=== PATIENT | male | born 1990 | race African-American/Black ===

== ENCOUNTER 2021-04-04 09:30 | Emergency (ER) | payer OTHER ==
[~2021-04-04] VITALS: Ht 185.4 cm; Wt 98.1 kg
[2021-04-04 09:33] VITALS: BP 134/67
== END 2021-04-04 12:34 | disposition home or self-care (01) ==
LOC: M ED 09:30
DX: J06.9 Acute upper respiratory infection, unspecified (principal); Z20.822 Contact with and (suspected) exposure to COVID-19
CPT/HCPCS: 99282; U0003

== ENCOUNTER 2021-04-16 09:18 | Emergency (ER) | payer OTHER ==
[~2021-04-16] VITALS: Ht 185.4 cm; Wt 91.8 kg
[2021-04-16 09:20] VITALS: BP 120/59
--- OUTSIDE RECORDS SUMMARY | 2021-04-16 09:28 | CCD | Continuity of Care Document ---
Author Author Tyler Bell Organization Unknown Address [address] [place] [address] Phone [phone] Care Team Providers Care Glue Specialty Supervisor Name Role Phone Sammi Randhawa M.D. AUTM [phone] [facility] AUTM Problems Description No Information Available Social History Type Date Description Comments Sex Unknown Allergies, Adverse Reactions, Alerts Description No Information Available Medications Description No Information Available Immunizations Description No Information Available Vital Signs Description No Information Available Results Description No Information Available Procedures Date Code Description Status 01/13/2021 38919 Polysomnography Sleep Staging 4+ Parameters W/Cpap Completed Medical Devices Description No Information Available Encounters Description No Information Available Assessments Date Code Description Provider 01/13/2021 G47.33 Obstructive sleep apnea (adult) (pediatric) Jay Rodriguez M.D. Plan of Treatment No Information Available Functional Status Description No Information Available Mental Status Description No Information Available Referrals Refer to Reason for Referral Status Appt Date Created
--- OUTSIDE RECORDS SUMMARY | 2021-04-16 09:28 | CCD | Continuity of Care Document ---
Author Author Tyler Bell Organization Unknown Address [address] [place] [address] Phone [phone] Care Team Providers Care Volleyball Assistant Coach Name Role Phone Sammi Randhawa M.D. AUTM [phone] [facility] AUTM [phone] Problems Description No Information Available Social History Type Date Description Comments Sex Unknown Allergies, Adverse Reactions, Alerts Description No Information Available Medications Description No Information Available Immunizations Description No Information Available Vital Signs Description No Information Available Results Description No Information Available Procedures Date Code Description Status 01/13/2021 25400 Polysomnography Sleep Staging 4+ Parameters W/Cpap Completed [...]
--- OUTSIDE RECORDS SUMMARY | 2021-04-16 09:28 | CCD | Continuity of Care Document ---
Author Author Tyler Bell Organization Unknown Address [address] [place] [address] Phone [phone] Care Team Providers Care Broom Builder Name Role Phone Sammi Randhawa M.D. AUTM [phone] Problems Description No Information Available Social History Type Date Description Comments Sex Unknown Allergies and adverse reactions Description No Information Available Medications Description No Information Available Immunizations Description No Information Available Vital Signs Description No Information Available Results Description No Information Available Procedures Date Code Description Status 03/20/2021 67541 Polysomnography Sleep Staging 4+ Parameters Completed 01/13/2021 74210 Polysomnography Sleep Staging 4+ Parameters W/Cpap Completed Medical Devices Description No Information Available Encounters Description No Information Available Assessments Date Code Description Provider 03/20/2021 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 03/20/2021 R06.83 Snoring Jay Rodriguez M.D. 01/13/2021 G47.33 Obstructive sleep apnea (adult) (pediatric) Jay Rodriguez M.D. Plan of Treatment No Information Available Functional Status Description No Information Available Mental Status Description No Information Available Referrals Refer to Reason for Referral Status Appt Date Created
--- OUTSIDE RECORDS SUMMARY | 2021-04-16 09:28 | CCD | Continuity of Care Document ---
Author Author Tyler Bell Organization Unknown Address [address] [place] [address] Phone [phone] Care Team Providers Care Senior Training Specialist Name Role Phone Sammi Randhawa M.D. [facility] [phone] Problems Description No Information Available Social History Type Date Description Comments Sex Unknown Allergies, Adverse Reactions, Alerts Description No Information Available Medications Description No Information Available Immunizations Description No Information Available Vital Signs Description No Information Available Results Description No Information Available Procedures Date Code Description Status 01/13/2021 17621 Polysomnography Sleep Staging 4+ Parameters W/Cpap Completed [...]
--- OUTSIDE RECORDS SUMMARY | 2021-04-16 09:28 | CCD | Continuity of Care Document ---
Author Author Tyler Bell Organization Unknown Address [address] [place] [address] Phone [phone] Care Team Providers Care Field Human Resources Manager Name Role Phone Sammi Randhawa M.D. [facility] [phone] Problems Description No Information Available Social History Type Date Description Comments Sex Unknown Allergies, Adverse Reactions, Alerts Description No Information Available Medications Description No Information Available Immunizations Description No Information Available Vital Signs Description No Information Available Results Description No Information Available Procedures Description No Information Available Medical Devices Description No Information Available Encounters Description No Information Available Assessments Description No Information Available Plan of Treatment No Information Available Functional Status Description No Information Available Mental Status Description No Information Available Referrals Description No Information Available
--- OUTSIDE RECORDS SUMMARY | 2021-04-16 09:28 | CCD ---
Author Author [facility] Address Unknown Phone Unavailable Support Name Relationship Address Phone [facility] Next Of Kin [address] [address] Unavailable Re-disclosure Warning The records that you are about to access may contain information from federally-assisted alcohol or drug abuse programs. If such information is present, then the following federally mandated warning applies: This information has been disclosed to you from records protected by federal confidentiality rules (42 CFR part 2). The federal rules prohibit you from making any further disclosure of this information unless further disclosure is expressly permitted by the written consent of the person to whom it pertains or as otherwise permitted by 42 CFR part 2. A general authorization for the release of medical or other information is NOT sufficient for this purpose. The Federal rules restrict any use of the information to criminally investigate or prosecute any alcohol or drug abuse patient.The records that you are about to access may contain highly sensitive health information, the redisclosure of which is protected by Article 27-F of the [facility] Public Health law. If you continue you may have access to information: Regarding HIV / AIDS; Provided by facilities licensed or operated by the [facility] Office of Mental Health; or Provided by the [facility] Office for People With Developmental Disabilities. If such information is present, then the following [facility] mandated warning applies: This information has been disclosed to you from confidential records which are protected by state law. State law prohibits you from making any further disclosure of this information without the specific written consent of the person to whom it pertains, or as otherwise permitted by law. Any unauthorized further disclosure in violation of state law may result in a fine or fpc sentence or both. A general authorization for the release of medical or other information is NOT sufficient authorization for further disc losure. Medications No Information Insurance Providers Payer name Policy type / Coverage type Policy ID Covered republican ID Covered republican's relationship to romeo Policy Romeo Plan Information [facility] ACTIVE DUTY [id number] Problems, Conditions, and Diagnoses No Information Surgeries/Procedures Procedure Description Date Indications Data Source(s) Polysomnography Sleep Staging 4+ Parameters 03/20/2021 12:00:00 AM EDT [facility] ([facility], ) Polysomnography Sleep Staging 4+ Parameters W/Cpap 01/13/2021 12:00:00 AM EDT [facility] ([facility], ) Results ID Date Data Source [id number] 04/04/2021 10:35:00 AM EDT [facility] Name Value Range Interpretation Code Description Data Kacie rce(s) Supporting Document(s) SARS COVID ANTIGEN NEGATIVE [facility] This lab was ordered by JANELL johnson nd reported by [facility]. Procedure Social History No Information
[2021-04-16] MEDS ORDERED: VIST25CA PO (09:32)
--- OUTSIDE RECORDS SUMMARY | 2021-04-16 11:03 | CCD ---
Author Author [facility] Address Unknown Phone Unavailable Support Name Relationship Address Phone [facility] Next Of Kin [address] [place] [address] Unavailable Re-disclosure Warning The records that you [...] is protected by Article 27-F of the [facility] Public Health law. If you continue you may have access to information: Regarding HIV / AIDS; Provided by facilities licensed or operated by the [facility] Office of Mental Health; or Provided by the [facility] Office for People With Developmental Disabilities. If such information is present, then the following [facility] mandated warning applies: This information has [...] law may result in a fine or half-way sentence or both. A general authorization for the release of medical or other information is NOT sufficient authorization for further disc losure. Medications No Information Insurance Providers Payer name Policy type / Coverage type Policy ID Covered democrat ID Covered democrat's relationship to romeo Policy Romeo Plan Information [facility] ACTIVE DUTY [id number] Problems, Conditions, and Diagnoses No Information Surgeries/Procedures Procedure Description Date Indications Data Source(s) Polysomnography Sleep Staging 4+ Parameters 03/20/2021 12:00:00 AM EDT [facility] ([facility], ) Polysomnography Sleep Staging 4+ Parameters W/Cpap 01/13/2021 12:00:00 AM EDT [facility] ([facility], ) Results ID Date Data Source [id number] 04/04/2021 10:35:00 AM EDT [facility] Name Value Range Interpretation Code Description Data Kacie rce(s) Supporting Document(s) SARS COVID ANTIGEN NEGATIVE [facility] This lab was ordered by JANELL johnson nd reported by [facility]. Procedure Social History No Information
== END 2021-04-16 10:59 | disposition left against medical advice (07) ==
LOC: M ED 09:18
DX: Z53.21 Procedure and treatment not carried out due to patient leaving prior to being seen by health care provider (principal)

== ENCOUNTER 2021-04-19 02:47 | Emergency (ER) | payer OTHER ==
[~2021-04-19] VITALS: Ht 185.4 cm; Wt 96.8 kg
[~2021-04-19 02:47] MED LIST: VIST25CA PO
--- OUTSIDE RECORDS SUMMARY | 2021-04-19 02:52 | CCD ---
Author Author [facility] Address Unknown Phone Unavailable Support Name Relationship Address Phone [facility] Next Of Kin [address] [place] [address] Unavailable Re-disclosure Warning The records that you [...] is protected by Article 27-F of the [facility] Public Health law. If you continue you may have access to information: Regarding HIV / AIDS; Provided by facilities licensed or operated by the [facility] Office of Mental Health; or Provided by the [facility] Office for People With Developmental Disabilities. If such information is present, then the following [facility] mandated warning applies: This information has [...] law may result in a fine or alf sentence or both. A general authorization for the release of medical or other information is NOT sufficient authorization for further disc losure. Medications No Information Insurance Providers Payer name Policy type / Coverage type Policy ID Covered alliance party ID Covered alliance party's relationship to romeo Policy Romeo Plan Information [facility] ACTIVE DUTY [id number] Problems, Conditions, and Diagnoses No Information Surgeries/Procedures Procedure Description Date Indications Data Source(s) Polysomnography Sleep Staging 4+ Parameters 03/20/2021 12:00:00 AM EDT [facility] ([facility], ) Polysomnography Sleep Staging 4+ Parameters W/Cpap 01/13/2021 12:00:00 AM EDT [facility] ([facility], ) Results ID Date Data Source [id number] 04/04/2021 10:35:00 AM EDT [facility] Name Value Range Interpretation Code Description Data Kacie rce(s) Supporting Document(s) SARS COVID ANTIGEN NEGATIVE [facility] This lab was ordered by JANELL johnson nd reported by [facility]. Procedure Social History No Information
[2021-04-19] MEDS ORDERED: LEXA1TAB PO (03:09)
--- OUTSIDE RECORDS SUMMARY | 2021-04-19 07:43 | CCD ---
Author Author [facility] Address Unknown Phone Unavailable Support Name Relationship Address Phone [facility] Next Of Kin [address] [place] [address] Unavailable Re-disclosure Warning The records that you [...] is protected by Article 27-F of the [facility] Public Health law. If you continue you may have access to information: Regarding HIV / AIDS; Provided by facilities licensed or operated by the [facility] Office of Mental Health; or Provided by the [facility] Office for People With Developmental Disabilities. If such information is present, then the following [facility] mandated warning applies: This information has been [...] law may result in a fine or longterm sentence or both. A general authorization for the release of medical or other information is NOT sufficient authorization for further disc losure. Medications No Information Insurance Providers Payer name Policy type / Coverage type Policy ID Covered democrat ID Covered democrat's relationship to romeo Policy Romeo Plan Information [facility] ACTIVE DUTY [id number] Problems, Conditions, and Diagnoses No Information Surgeries/Procedures Procedure Description Date Indications Data Source(s) Polysomnography Sleep Staging 4+ Parameters 03/20/2021 12:00:00 AM EDT [facility] ([facility], ) Polysomnography Sleep Staging 4+ Parameters W/Cpap 01/13/2021 12:00:00 AM EDT [facility] ([facility], ) Results ID Date Data Source [id number] 04/04/2021 10:35:00 AM EDT [facility] Name Value Range Interpretation Code Description Data Kacie rce(s) Supporting Document(s) SARS COVID ANTIGEN NEGATIVE [facility] This lab was ordered by JANELL johnson nd reported by [facility]. Procedure Social History No Information
[2021-04-19] MEDS ORDERED: diphenhydrAMINE 50MG/ML VIAL (J1200) IV STA (08:23)
[2021-04-19] MEDS ORDERED: METOCLOPRAMIDE INJ 10MG/2ML VIAL (J2765 PER 1) IV ONE (08:25)
[2021-04-19] MEDS ORDERED: KETOROLAC 30 MG/ML 1ML VIAL IV ONE (08:25)
[2021-04-19] MEDS ORDERED: NS 1,000 ML IV ONE (08:25)
--- NOTE | 2021-04-19 08:57 | REPVR ---
PROCEDURE INFORMATION: Exam: CT Head Without Contrast Exam date and time: 04/19/2021 8:28 AM Age: 30 years old Clinical indication: Pain; Headache; Additional info: MEJIA x 3wks, no prior HX of MEJIA TECHNIQUE: Imaging protocol: Computed tomography of the head without contrast. Radiation optimization: All CT scans at this facility use at least one of these dose optimization techniques: automated exposure control; mA and/or kV adjustment per patient size (includes targeted exams where dose is matched to clinical indication); or iterative reconstruction. COMPARISON: No relevant prior studies available. FINDINGS: Brain: Normal. No hemorrhage. Unremarkable white matter. No mass effect. Cerebral ventricles: No ventriculomegaly. Paranasal sinuses: Visualized sinuses are unremarkable. No fluid levels. Mastoid air cells: Visualized mastoid air cells are well aerated. Bones/joints: Unremarkable. No acute fracture. Soft tissues: Unremarkable. IMPRESSION: No acute intracranial abnormality. No CT explanation for the patient's headaches. Electronically signed by: Carlos Manuel Mills On 04/19/2021 08:57:17 AM
[2021-04-19 09:16] LABS: BASO % 0.7 % (0.0-1.0); EOS % 0.9 % (0.0-3.0); HEMATOCRIT 42.2 % (42.0-52.0); HEMOGLOBIN 14.9 g/dl (13.5-17.5); LYMPH # 2.2 10^3/uL (1.5-5.0); LYMPH % 50.8 % (24.0-44.0); MEAN CORPUSCULAR HEMOGLOBIN 30.6 pg (27.0-33.0); MEAN CORPUSCULAR HGB CONC 35.3 g/dl (32.0-36.5); MEAN CORPUSCULAR VOLUME 86.7 fl (80.0-96.0); MONO # 0.4 10^3/uL (0.0-0.8); MONO % 9.9 % (2.0-8.0); NEUTROPHILS # 1.6 10^3/uL (1.5-8.5); NEUTROPHILS % 37.5 % (36.0-66.0); PLATELET COUNT, AUTOMATED 252 10^3/uL (150-450); RED BLOOD COUNT 4.87 10^6/uL (4.30-6.10); WHITE BLOOD COUNT 4.4 10^3/uL (4.0-10.0)
[2021-04-19 09:34] LABS: ERYTHROCYTE SEDIMENTATION RATE 4 mm/hr (0-15)
[2021-04-19] MEDS ORDERED: MAG SULF 1GM/100ML (MAG RUN) 1 GM in IV 1 EA IV ONE (10:10)
[2021-04-19] MEDS ORDERED: dexameTHASONE 20MG/5ML VIAL (J1100 PER 1MG) IV ONE (10:10)
[2021-04-19 11:51] VITALS: BP 111/56
== END 2021-04-19 11:50 | disposition home or self-care (01) ==
LOC: M ED 02:47
DX: R51.9 Headache, unspecified (principal); Z88.8 Allergy status to other drugs, medicaments and biological substances; Z79.899 Other long term (current) drug therapy
CPT/HCPCS: 36415; 70450; 80047; 83735; 85025; 85652; 96361; 96374; 96375; 99284; J1100; J1200; J1885; J2765; J3475

== ENCOUNTER 2021-05-18 04:59 | Emergency (ER) | payer OTHER ==
[~2021-05-18] VITALS: Ht 185.4 cm; Wt 96.1 kg
[~2021-05-18 04:59] MED LIST changes: +LEXA1TAB PO
[2021-05-18 05:00] VITALS: BP 112/59
[2021-05-18] MEDS ORDERED: FIOR1CAP PO (05:07)
[2021-05-18] MEDS ORDERED: LORA-622 PO (05:07)
--- OUTSIDE RECORDS SUMMARY | 2021-05-18 05:07 | CCD ---
Author Author [facility] Organization [facility] Address Unknown Phone Unavailable Care Team Providers Care Paper Coater Name Role Phone Thor Pearce MD Unavailable Unavailable Thor Pearce MD Unavailable Unavailable Thor Pearce MD Unavailable Unavailable Thor Pearce MD Unavailable Unavailable Thor Pearce MD Unavailable Unavailable Thor Pearce MD Unavailable Unavailable UNKNOWN, CLINIC ERIKA Unavailable Unavailable Re-disclosure Warning The records that you [...] is protected by Article 27-F of the [facility] Public Health law. If you continue you may have access to information: Regarding HIV / AIDS; Provided by facilities licensed or operated by the [facility] Office of Mental Health; or Provided by the [facility] Office for People With Developmental Disabilities. If such information is present, then the following [facility] mandated warning applies: This information has [...] law may result in a fine or detention sentence or both. A general authorization for the release of medical or other information is NOT sufficient authorization for further disc losure. Encounters Encounter Providers Location Date Indications Data Source(s ) Emergency Attender: Thor Pearce MDConsultant: ERIKA UNKNOWN 04/25/2021 05:17:00 PM EDT - 04/25/2021 06:30:00 PM EDT [facility] Patient discharged. Medications No Information Insurance Providers Payer name Policy type / Coverage type Policy ID Covered alliance party ID Covered alliance party's relationship to reyes Policy Reyes Plan Information [facility] ACTIVE DUTY [id number] SP [id number] [facility] [id number] 18 [id number] [facility] - [facility]/P [id number] 18 [id number] Problems, Conditions, and Diagnoses Code Display Name Description Problem Type Effective Dates Data Source(s) [id number] Migraine without aura, intractable, with status migrainosus Migraine without aura, intractable, with status migrainosus Diagnosis 05:17:00 PM EDT [facility] R519 Headache, unspecified Headache, unspecified Diagnosis 04/25/2021 05:17:00 PM EDT [facility] Surgeries/Procedures Procedure Description Date Indications Data Source(s) Polysomnography Sleep Staging 4+ Parameters 03/20/2021 12:00:00 AM EDT [facility] ([facility]) Polysomnography Sleep Staging 4+ Parameters W/Cpap 01/13/2021 12:00:00 AM EDT [facility] ([facility]) Results ID Date Data Source [id number] 04/25/2021 05:17:00 PM EDT [facility] 1 OrderSheet [facility] Emergency Department [address] [place] [address] Phone #: ext- [phone] 04/25/2021 17:13 Patient: SUKH SERNA Sex: M : 1990 Age: 30yWEIGHT:92.5 kg (S)ALLERGIES: Aspirin, Primaquine PhosphateCHIEF COMPLAINT: headacheDIAGNOSIS: MigraineLAB ORDERSOrder Description Priority Entered Acknowledged InitialedDIAGNOSTIC STUDY ORDERSOrder Description Priority Entered Acknowledged InitialedMEDICATION/IV/DRIP/FLUID ORDERSOrder Description Priority Entered Acknowledged InitialedToradol IVP 30 mg 17:39 04/25/2021 17:50 Sorbero,(NOW x1) Thor Pearce ; Bigg PerezReglan 10 mg IVP 17:39 04/25/2021 17:49 So rbero,X1 dose: 10 mg Thor Pearce ; Bigg Perez(NOW x1)GENERAL ORDERSOrder Description Priority Entered Acknowledged Initialed[Electronically signed by Thor Pearce (19:22 04/25/2021)][Electronically signed by Bigg Light R.N. (20:02 04/25/2021)][Electronically locked by Bigg Light R.N. (20:02 04/25/2021)] Name Value Range Interpretation Code Description Data Kacie rce(s) Supporting Document(s) ID Date Data Source [id number] 04/25/2021 05:17:00 PM EDT [facility] 1 Medication Reconciliation Report [facility] Emergency Department [address] [place] [address] Phone #: ext- [phone] 04/25/2021 17:13 Patient: SUKH SERNA Sex: M : 1990 Age: 30yWeight: 92.5 kgHeight/Length: 73 in.BMI: 26.9ALLERGIES: Aspirin, Primaquine PhosphateThe patient's Home Medications are listed below:NONE.The source(s) of the original Home Medication information:patientThe following Medications were given to the patient in the Emergency Department:Regl an [IVP] IVP 10 mg, administered: 17:49 10/26/2021Toradol [IVP] IVP 30 mg, administered: 17:50 04/25/2021The following Medications were prescribed to the patient:Fioricet 50 mg-300 mg-40 mg capsule Take 1 capsule three times a day -- Dispense 12 capsule.Refills: 0. Substitution permitted.Pharmacy - [facility] [id number] ; [place] [address]. . -- Thor Pearce Name Value Range Interpretation Code Description Data Kacie rce(s) Supporting Document(s) ID Date Data Source [id number] 04/25/2021 05:17:00 PM EDT [facility] 1 Medication Administration Record [facility] Emergency Department [address] [place] [address] Phone #: ext- [phone] 04/25/2021 17:13 Patient: SUKH SERNA Sex: M : 1990 Age: 30yWeight: 92.5 kgHeight/Length: 73 inBMI: 26.9ALLERGIES: Primaquine Phosphate, Aspirin Date/Time Medication Administered Medication OrderedGiven TORADOL [IVP] (KETOROLAC Toradol IVP 30 mg (NOW x1)17:50 04/25/2021 TROMETHAMINE)Bigg Light, R.N. Dose: 30 mg IVP Site: #1 left ACGiven REGLAN [IVP] (METOCLOPRAMIDE Reglan 10 mg IVP X1 dose: 10 mg17:49 04/25/2021 HCL) (NOW x1)Bigg Light, R.N. Dose: 10 mg IVP Site: #1 left AC Name Value Range Interpretation Code Description Data Kacie rce(s) Supporting Document(s) ID Date Data Source [id number] 04/25/2021 05:17:00 PM EDT [facility] 1 General Instructions [facility] Emergency Department [address] [place] [address] Phone #: ext- [phone] 04/25/2021 17:13 Patient: SUKH SERNA Sex: M : 1990 Age: 30yAcute migraine headache without aura, with status migrainosus- poorly controlled.INSTRUCTIONSWarnings: Further evaluation is necessary.GENERAL WARNINGS: Return or contact your physician immediately if your condition worsens orchanges unexpectedly, if not improving as expected, or if other problems arise.Prescription Medications:Fioricet 50 mg-300 mg-40 mg capsule Take 1 capsule three times a day -- Dispense 12 capsule.Refills: 0. Substitution permitted.Pharmacy - [facility] [id number] ; [place] [address]. .Understanding of the discharge instructions verbalized by patient.Follow-up with: [facility] Respective Team Alessandra FREEMAN, , , [id number] [facility], , [place], [address] Follow up in three days if not better. Call for an appointment. Reason for referral: evaluation. ADDITIONAL INFORMATIONWhat Are Migraine and Tension Headaches? 2 General Instructions [facility] Emergency Department [address] [place] [address] Phone #: ext- [phone] 04/25/2021 17:13 Patient: SUKH SERNA Sex: M : 1990 Age: 30y Although there are several types of headaches, migraineand tension headaches affect the most people. When you have a headache, it isn't your brain that'shurting. Your head aches because nerves in the bones, blood vessels, meninges, and muscles ofyour head are irritated. These irritated nerves send pain signals to the brain, which identifies whereyou hurt and how bad the pain is.Talk with your healthcare provider about a treatment plan that may help relieve pain and preventfuture headaches.What causes your headache?The actual headache process is not yet understood. Only rarely are headaches a sign of a seriousmedical problem such as a tumor. Headache pain may be caused by abnormal interaction betweenthe brain and the nerves and blood vessels in the head. A previous head injury or concussion, neckpain, environmental stresses, muscle tension, anxiety, depression, fatigue, skipping meals, or certainfoods and drinks may trigger headache pain.Brain scans are rarely needed and only for certain danger sign symptoms. CT scans are associatedwith potential radiation effects and potential inaccurate false findings.What is referred pain?Headache pain can be referred pain, which is pain that has its source in one place but is felt inanother. For example, pain behind the eyes may actually be caused by tense muscles in the neckand shoulders. This means that the place that hurts may not be the part of the body that needstreatment.Is it a migraine?Migraine is a vascular headache that causes throbbing pain felt on one (most common) or both sides(less common) of the head. You may feel nauseated or vomit. This headache may also be precededor associated with changes in sight (like seeing spots or flashes of light), ability to speak, or sensation 3 General Instructions [facility] Emergency Department [address] [place] [address] Phone #: ext- [phone] 04/25/2021 17:13 Patient: SUKH SERNA Sex: M : 1990 Age: 30y(aura). There are a wide variety of environmental and food-related triggers for migraines. The painmay last for 4 to 72 hours. Afterward, you may feel shaky for a day or so. If this is the first time youexperience these symptoms, you should immediately seek medical attention because you could behaving a stroke.Is it a tension headache?This type of headache is usually a dull ache or a sensation of pressure on both sides of the head. Itmay be associated with pain or tension in the neck and shoulders. Depression, anxiety, and stresscan cause a tension headache. The pain may not have a definite beginning or end. It may come andgo, or seem never to go away. When to call the healthcare provider Call your healthcare provider for headaches that happen along with any of these symptoms: Sudden, severe headache that is different from your usual headache pain Headache associated with fever Sudden headache associated with stiff neck Slurred speech Recurring headache in children Ongoing numbness or muscle weakness Loss of vision Pain following a head injury Convulsions, or a change in mental awareness A headache you would call "the worst headache you've ever had" New headaches in a woman [id number] The [employer]. [address] [place] [address]. All rights reserved. This information is not intended as asubstitute for professional medical care. Always follow your healthcare professional's instructions. You have been given the following additional information: What Are Migraine and Tension Headaches? 4 General Instructions [facility] Emergency Department [address] [place] [address] Phone #: ext- [phone] 04/25/2021 17:13 Patient: SUKH SERNA Sex: M : 1990 Age: 30y(Electronically signed by Thor Pearce 04/25/2021 19:22) Name Value Range Interpretation Code Description Data Kacie rce(s) Supporting Document(s) ID Date Data Source [id number] 04/25/2021 05:17:00 PM EDT [facility] 1 Clinical Report - Nurses [facility] Emergency Department [address] [place] [address] Phone #: ext- [phone] 04/25/2021 17:13 Patient: SUKH SERNA Sex: M : 1990 Age: 30yTRIAGEArrived by private vehicle. Historian: patient. ( presents with headache).Triage time: 17:26 04/25/2021. Acuity: LEVEL 4.Chief Complaint: HEADACHE.Alert. No acute distress.This started 4 weeks.Treatment SERVICES MGR:Seen within the last 72 hours at another facility in the ED and office; seen for similar symptoms; CT done.SEPSIS SCREEN: SIRS SCREEN NEGATIVE. SEPSIS SCREEN NEGATIVE. No suspected or confirmedsigns of infection present.WILL COMA SCORE: 15- eyes open- spontaneous (4); best verbal response- oriented (5); bestmotor response- obeys commands (6). --17:29 04/25/21 Bigg Light R.N.17:26 04/25/21. BP: 153/95. MAP: 114. HR: 54. RR: 16. O2 saturation: 100% on room air. Temp: 98.1 F.Pain level now: 5/10. --17:29 04/25/21 Bigg Light R.N.Weight: 92.5 kg stated. Height/Length: 73 inches Per Patient. BMI: 26.9. --17:26 04/25/21 Bigg Light R.N.MedicationsNone. --17:36 04/25/21 Bigg Light R.N.AllergiesAspirin. --18:32 04/25/21 Bigg Light R.N.Primaquine Phosphate. --18:32 04/25/21 Sorbero, Bigg, R.N.The following entry was struck by Bigg Light R.N., 18:31 (04/25/21) Reason - wrong value. None. --18:29 04/25/21 Bigg Light R.N. .PROBLEMS:Headache. --17:35 04/25/21 Bigg Light R.N.Medication/allergy information source: the patient. --17:29 04/25/21 Bigg Light R.N.ADDITIONAL SURGERIES: 2 Clinical Report - Nurses [facility] Emergency Department [address] [place] [address] Phone #: ext- [phone] 04/25/2021 17:13 Patient: SUKH SERNA Sex: M : 1990 Age: 30y no known surgeries. History SOCIAL HX: Never smoker. Occasional alcohol use. No drug use. No recent travel. No known contact with a sick individual. He was offered HIV testing but declined and hepatitis C testing but declined. He has not traveled outside the [place] Infectious disease exposure: No infectious disease exposure. SELF HARM ASSESSMENT: Self harm assessment was performed. The patient answered "no" to the question(s) "Have you recently felt down, depressed, or hopeless?", "Do you have thoughts of harming or killing yourself?", "Do you have a plan for harming or killing yourself?" and "Have you recently had thoughts about harming or killing others?". ABUSE ASSESSMENT: No report of abuse. FALL RISK ASSESSMENT: Fall risk assessment completed. No risk factors identified. --17:29 04/25/21 Bigg Light R.N. FAMILY HX: No significant family medical history. --17:50 04/25/21 Thor Pearce. Assessment The patient states feels the same. --17:29 04/25/21 Bigg Light R.N. Interventions Identification band on patient. To treatment room. --17:29 04/25/21 Bigg Light R.N.PHYSICAL ASSESSMENTAmbulatory to room. ( frontal headache pain).GENERAL / NEURO / PSYCH: Alert. Oriented X 4. Appears in no acute distress. Speech within normallimits.HEENT: No facial asymmetry noted.RESPIRATORY: Respirations not labored. Breath sounds within normal limits.CVS: Capillary refill less than 2 seconds.GI / : Abdomen soft and nontender.SKIN: Skin is warm and dry. --17:29 04/25/21 Bigg Light R.N.NURSING PROGRESS NOTES17:30 04/25/21. Reassurance given. Two patient identifiers checked. Call light placed in reach. Bedplaced in lowest position. Brakes of bed on. Patient ready for evaluation- PA notified. --17:30 04/25/21Bigg Light R.N. 17:39 04/25/2021 Site #1 started via IV in the left antecubital space with an 18g angiocath, with aseptic technique and good blood return; one attempt. Saline lock flushed with 10 mL saline. --17:49 04/25/21 Bigg Light R.N. 3 Clinical Report - Nurses [facility] Emergency Department [address] [place] [address] Phone #: ext- [phone] 04/25/2021 17:13 Patient: SUKH SERNA Sex: M : 1990 Age: 30y 17:49 04/25/2021 Reglan (Metoclopramide HCl) IVP 10 mg given over 2 minute(s) via site #1. Allergies verified and confirmed 5 rights. IV patency established. IV site checked: no pain, redness, or swelling. IV flushed thoroughly pre- and post-medication administration. IVP given by RN. Information reviewed with patient including reason for taking this medication, signs of allergic reaction and precautions. Verbalizes understanding. --17:49 04/25/21 Bigg Light R.N. 17:50 04/25/2021 Toradol (Ketorolac Tromethamine) IVP 30 mg given over 2 minute(s) via site #1. Allergies verified and confirmed 5 rights. IV patency established. IV site checked: no pain, redness, or swelling. IV flushed thoroughly pre- and post-medication administration. IVP given by RN. Information reviewed with patient including reason for taking this medication, signs of allergic reaction and precautions. Verbalizes understanding. --17:50 04/25/21 Bigg Light R.N.DISPOSITION / DISCHARGE 18:23 04/25/21. Departure time: 18:28 04/25/2021. Condition at departure: improved and stable. The goals identified in the patient's plan of care were met. Fall risk assessment completed. No risk factors identified. No learning barriers present. Discharge instructions provided and reviewed with the patient. Reviewed warnings. Reviewed medication(s) side effects, precautions, dosing and course information. Prescription(s) sent electronically to pharmacy. Treatments reviewed. Reviewed referral to a primary care physician. Patient verbalized understanding. Written instructions provided in [place]. The patient was discharged by the physician. He was discharged home. He left ambulatory and via private vehicle. Patient driving. --18:28 04/25/21 Bigg Light R.N. 18:27 04/25/21. BP: 121/90. MAP: 100. HR: 53. RR: 16. O2 saturation: 100%. Temp: 98.2 F. Pain level now: 10. --18:28 04/25/21 Bigg Light R.N. 18:29 04/25/2021 Site #1 removed upon discharge. Catheter intact. Bandage applied. --18:29 04/25/21 Bigg Light R.N.Locked/Released at 04/25/2021 20:02 by Bigg Light R.N. Name Value Range Interpretation Code Description Data Kacie rce(s) Supporting Document(s) ID Date Data Source [id number] 04/25/2021 05:17:00 PM EDT [facility] 1 Clinical Report - Physicians/Mid Levels [facility] Emergency Department [address] [place] [address] Phone #: ext- [phone] 04/25/2021 17:13 Patient: SUKH SERNA Sex: M : 1990 Age: 30y Time Seen: 17:36 04/25/2021. Arrived- By private vehicle. Historian- patient.HISTORY OF PRESENT ILLNESS Chief Complaint: HEADACHE. Is still present. This started 4 weeks. It has been intermittent. It is described as pressure. Located in the right hemicranial, frontal and right maxillary region and region of the right eye. No neck pain. Not located in the facial region. At its maximum, severity described as moderate. When seen in the E.D., severity described as moderate. Modifying factors. Not worsened by anything. The patient has had photophobia and nausea. No preceding symptoms, blurred vision, numbness, weakness or vomiting. (Headache right sided for 4 weeks. Seen twice at [facility] and had workup done. Headache every 2-3 days. No fever, arm or leg weakness. The medical staff at [facility] prescribed him Ibuprofen without any relief. No hearing loss. No tearing in eyes). No recent travel. Similar symptoms previously. None. Recent medical care: The patient was seen recently in the emergency department and office.REVIEW OF SYSTEMSNo fever, muscle aches, sinus pressure, ear pain or head injury. No chest pain, difficulty breathing,diarrhea, enlarged lymph nodes or back pain. No fatigue, fever, decreased vision, double vision or eyeirritation. No hearing loss, nasal congestion, runny nose, sinus pain or sore throat. No toothache orabdominal pain. The patient has had photophobia, tinnitus, nausea and a headache. All other systemsreviewed and are negative.PAST HISTORYSee nurses notes. No history of chronic headaches. Problems: Headache. Surgeries: No history of previous surgery. Additional Surgeries: no known surgeries. Medications: None. Allergies: 2 Clinical Report - Physicians/Mid Levels [facility] Emergency Department [address] [place] [address] Phone #: [phone]- [phone] 04/25/2021 17:13 Patient: SUKH SERNA Sex: M : 1990 Age: 30y Aspirin. Primaquine Phosphate.SOCIAL HISTORYNever smoker. No alcohol use.FAMILY HISTORYNo significant family medical history.ADDITIONAL NOTESThe nursing notes have been reviewed.PHYSICAL EXAMVital Signs: 04/25/2021 17:26 BP: 153/95. MAP: 114. HR: 54. RR: 16. O2 saturation: 100% on room air.Temp: 98.1 F. Pain level now: 5/10.Appearance: Alert. No acute distress.Eyes: Pupils equal, round and reactive to light. Eyes normal inspection.ENT: Ears normal. Pharynx normal.Neck: Normal inspection. Neck supple. No meningeal signs.CVS: Normal heart rate and rhythm. Heart sounds normal. Pulses normal.Respiratory: No respiratory distress. Painless inspir ation. Breath sounds normal.Abdomen: Soft and nontender.Back: Normal inspection.Skin: Skin warm. Normal skin color. No rash. Normal skin turgor.Extremities: Extremities exhibit normal ROM. No lower extremity edema.Neuro: Oriented X 3. Mood/affect normal. Cranial nerves normal (as tested). No cerebellar findings.No motor deficit. No sensory deficit.PROGRESS AND PROCEDURESCourse of Care: 17:53 04/25/21. No tachycardia, focal neurologic deficits, vomiting, febrile illness. Unlikelyto be sinusitis. CT scan done 04/19 was negative 18:17 04/25/21. No focal deficits. Headache is slightly improved. Trigeminal neuralgia vs migraine. Will discharge on Fioricet. Old medical records ordered. Disposition: Discharged. Condition: stable.CLINICAL IMPRESSION Acute migraine headache without aura, with status migrainosus- poorly controlled. 3 Clinical Report - Physicians/Mid Levels [facility] Emergency Department [address] [place] [address] Phone #: ext- [phone] 04/25/2021 17:13 Patient: SUKH SERNA Sex: M : 1990 Age: 30yINSTRUCTIONS Warnings: Further evaluation is necessary. GENERAL WARNINGS: Return or contact your physician immediately if your condition worsens or changes unexpectedly, if not improving as expected, or if other problems arise. Prescription Medications: Fioricet 50 mg-300 mg-40 mg capsule Take 1 capsule three times a day -- Dispense 12 capsule. Refills: 0. Substitution permitted. Pharmacy - [facility] [id number] ; [place] [address]. . Understanding of the discharge instructions verbalized by patient. Follow-up with: [facility] Respective Team Alessandra Hernandez PETE, , , [address] [facility] [address], , [place], [address] Follow up in three days if not better. Call for an appointment. Reason for referral: evaluation.(Electronically signed by Thor Pearce 04/25/2021 19:22) Name Value Range Interpretation Code Description Data Kacie rce(s) Supporting Document(s) ID Date Data Source [id number] 04/04/2021 10:35:00 AM EDT [facility] Name Value Range Interpretation Code Description Data Kacie rce(s) Supporting Document(s) [facility] This lab was ordered by JANELL johnson nd reported by [facility]. Procedure Social History No Information
[2021-05-18] MEDS ORDERED: diphenhydrAMINE 50MG/ML VIAL (J1200) IV ONE (07:20)
[2021-05-18] MEDS ORDERED: NS 1,000 ML IV ONE (07:20)
[2021-05-18] MEDS ORDERED: METOCLOPRAMIDE INJ 10MG/2ML VIAL (J2765 PER 1) IV ONE (07:20)
[2021-05-18] MEDS ORDERED: ACETAMINOPHEN 500 MG TAB PO ONE (07:20)
[2021-05-18] MEDS ORDERED: KETOROLAC 30 MG/ML 1ML VIAL IV ONE (07:25)
--- OUTSIDE RECORDS SUMMARY | 2021-05-18 07:35 | CCD ---
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 If you continue you may have access to information: Regarding HIV / AIDS; Provided by facilities licensed or operated by the [facility] Office of Mental Health; or Provided by the [facility] Office for People With Developmental Disabilities. If such information is present, then the following [facility] mandated warning applies: This information has been [...] law may result in a fine or shelter sentence or both. A general authorization for the release of medical or other information is NOT sufficient authorization for further disc losure. Encounters Encounter Providers Location Date Indications Data Source(s ) Emergency Attender: Thor Pearce MDConsultant: ERIKA UNKNOWN 04/25/2021 05:17:00 PM EDT - 04/25/2021 06:30:00 PM EDT [facility] Patient discharged. Medications No Information Insurance Providers Payer name Policy type / Coverage type Policy ID Covered republican ID Covered republican's relationship to reyes Policy Reyes Plan Information [facility] ACTIVE DUTY [id number] SP [id number] [facility] - O/P [id number] [id number] [facility] - O/P [id number] 18 [id number] Problems, Conditions, and Diagnoses Code Display Name Description Problem Type Effective Dates Data Source(s) S25811 Migraine without aura, intractable, with status migrainosus Migraine without aura, intractable, with status migrainosus Diagnosis 05:17:00 PM EDT [facility] R519 Headache, unspecified Headache, unspecified Diagnosis 04/25/2021 05:17:00 PM EDT [facility] Surgeries/Procedures Procedure Description Date Indications Data Source(s) Polysomnography Sleep Staging 4+ Parameters 03/20/2021 12:00:00 AM EDT [facility] Polysomnography Sleep Staging 4+ Parameters W/Cpap 01/13/2021 12:00:00 AM EDT [facility] Results ID Date Data Source [id number] 04/25/2021 05:17:00 PM EDT [facility] 1 OrderSheet [facility] Emergency Department [address] [place] [address] Phone #: ext- [phone] 04/25/2021 17:13 Patient: [...] rce(s) Supporting Document(s) ID Date Data Source [id number] 04/25/2021 05:17:00 PM EDT [facility] 1 Medication Reconciliation Report [facility] Emergency Department [address] [place] [address] Phone #: ext- [phone] 04/25/2021 17:13 Patient: [...] Dispense 12 capsule.Refills: 0. Substitution permitted.Pharmacy - [facility] [phone] ; [place] [address]. . -- Thor Pearce Name Value Range Interpretation Code Description Data Kacie rce(s) Supporting Document(s) ID Date Data Source [id number] 04/25/2021 05:17:00 PM EDT [facility] 1 Medication Administration Record [facility] Emergency Department [address] [place] [address] Phone #: ext- [phone] 04/25/2021 17:13 Patient: [...] rce(s) Supporting Document(s) ID Date Data Source [id number] 04/25/2021 05:17:00 PM EDT [facility] 1 General Instructions [facility] Emergency Department [address] [place] [address] Phone #: ext- [phone] 04/25/2021 17:13 Patient: [...] Dispense 12 capsule.Refills: 0. Substitution permitted.Pharmacy - [facility] [phone] ; [place] [address]. .Understanding of the discharge instructions verbalized by patient.Follow-up with: [facility] Respective Team Alessandra FREEMAN, , , [address] [facility], , [place], [address] Follow up in three days if not better. Call for an appointment. Reason for referral: evaluation. ADDITIONAL INFORMATIONWhat Are Migraine and Tension Headaches? 2 General Instructions [facility] Emergency Department [address] [place] [address] Phone #: ext- [phone] 04/25/2021 17:13 Patient: [...] to speak, or sensation 3 General Instructions [facility] Emergency Department [address] [place] [address] Phone #: ext- [phone] 04/25/2021 17:13 Patient: [...] ever had" New headaches in a woman [id number] [employer]. [address] [place] [address]. All rights reserved. This information is not intended as asubstitute for professional medical care. Always follow your healthcare professional's instructions. You have been given the following additional information: What Are Migraine and Tension Headaches? 4 General Instructions [facility] Emergency Department [address] [place] [address] Phone #: ext- [phone] 04/25/2021 17:13 Patient: SUKH SERNA Sex: M : 1990 Age: 30y(Electronically signed by Thor Pearce 04/25/2021 19:22) Name Value Range Interpretation Code Description Data Kacie rce(s) Supporting Document(s) ID Date Data Source [id number] 04/25/2021 05:17:00 PM EDT [facility] 1 Clinical Report - Nurses [facility] Emergency Department [address] [place] [address] Phone #: ext- [phone] 04/25/2021 17:13 Patient: SUKH SERNA Sex: M : 1990 Age: 30yTRIAGEArrived by private vehicle. Historian: patient. ( presents with headache).Triage time: 17:26 04/25/2021. Acuity: LEVEL 4.Chief Complaint: HEADACHE.Alert. 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 3 Clinical Report - Nurses [facility] Emergency Department [address] [place] [address] Phone #: ext- [phone] 04/25/2021 17:13 Patient: [...] Patient verbalized understanding. Written instructions provided in Belizean. The patient was discharged by the physician. [...] rce(s) Supporting Document(s) ID Date Data Source [id number] 04/25/2021 05:17:00 PM EDT [facility] 1 Clinical Report - Physicians/Mid Levels [facility] Emergency Department [address] [place] [address] Phone #: ext- [phone] 04/25/2021 17:13 Patient: [...] sided for 4 weeks. Seen twice at [facility] and had workup done. Headache every 2-3 days. No fever, arm or leg weakness. The medical staff at [facility] prescribed him Ibuprofen without any relief. No [...] Allergies: 2 Clinical Report - Physicians/Mid Levels [facility] Emergency Department [address] [place] [address] Phone #: [phone] 04/25/2021 17:13 Patient: SUKH SERNA Sex: M [...] controlled. 3 Clinical Report - Physicians/Mid Levels [facility] Emergency Department [address] [place] [address] Phone #: ext- [phone] 04/25/2021 17:13 Patient: [...] capsule. Refills: 0. Substitution permitted. Pharmacy - [facility] [phone] ; [place] [address]. . Understanding of the discharge instructions verbalized by patient. Follow-up with: [facility] Respective Team Alessandra Hernandez PETE, , , [address] [facility] [address], , [place], [address] Follow up in three days if not better. Call for an appointment. Reason for referral: evaluation.(Electronically signed by Thor Pearce 04/25/2021 19:22) Name Value Range Interpretation Code Description Data Kacie rce(s) Supporting Document(s) ID Date Data Source [id number] 04/04/2021 10:35:00 AM EDT [facility] Name Value Range Interpretation Code Description Data Kacie rce(s) Supporting Document(s) SARS COVID [facility]IGEN [facility]IVE [facility] This lab was ordered by JANELL johnson nd reported by [facility]. Procedure Social History No Information
[2021-05-18 07:56] LABS: BASO % 0.4 % (0.0-1.0); EOS # 0.1 10^3/uL (0.0-0.5); HEMATOCRIT 43.9 % (42.0-52.0); HEMOGLOBIN 15.3 g/dl (13.5-17.5); LYMPH # 2.2 10^3/uL (1.5-5.0); LYMPH % 45.1 % (24.0-44.0); MEAN CORPUSCULAR HEMOGLOBIN 30.7 pg (27.0-33.0); MEAN CORPUSCULAR HGB CONC 34.9 g/dl (32.0-36.5); MONO # 0.5 10^3/uL (0.0-0.8); MONO % 9.6 % (2.0-8.0); NEUTROPHILS # 2.1 10^3/uL (1.5-8.5); NEUTROPHILS % 43.7 % (36.0-66.0); PLATELET COUNT, AUTOMATED 274 10^3/uL (150-450); RED BLOOD COUNT 4.99 10^6/uL (4.30-6.10); WHITE BLOOD COUNT 4.8 10^3/uL (4.0-10.0)
[2021-05-18 09:03] LABS: RSV AMPLIFICATION NEGATIVE (NEGATIVE)
[2021-05-18] MEDS ORDERED: dexameTHASONE 4 MG/ML 1ML VIAL (J1100 PER 1MG) IV ONE (09:20)
[2021-05-18] MEDS ORDERED: AMIT25TA17 PO (10:00)
== END 2021-05-18 11:06 | disposition home or self-care (01) ==
LOC: M ED 04:59
DX: G43.909 Migraine, unspecified, not intractable, without status migrainosus (principal); F41.9 Anxiety disorder, unspecified; F32.9 Major depressive disorder, single episode, unspecified; F43.10 Post-traumatic stress disorder, unspecified; G47.30 Sleep apnea, unspecified; Z88.8 Allergy status to other drugs, medicaments and biological substances
CPT/HCPCS: 80047; 83735; 85025; 87631; 96361; 96374; 96375; 99283; J1100; J1200; J1885; J2765

== ENCOUNTER 2021-06-02 09:47 | Emergency (ER) | payer OTHER ==
[~2021-06-02] VITALS: Ht 185.4 cm; Wt 92.7 kg
[2021-06-02 09:47] VITALS: BP 138/84
[~2021-06-02 09:47] MED LIST changes: +AMIT25TA17 PO; +FIOR1CAP PO; +LORA-622 PO
--- OUTSIDE RECORDS SUMMARY | 2021-06-02 09:53 | CCD ---
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 Public Health law. If you continue you may have access to information: Regarding HIV / AIDS; Provided by facilities licensed or operated by the [facility] Office of Mental Health; or Provided by the [facility] Office for People With Developmental Disabilities. If such information is present, then the following [facility] mandated warning applies: This information has [...] law may result in a fine or long-term sentence or both. A general authorization for the release of medical or other information is NOT sufficient authorization for further disc losure. Encounters Encounter Providers Location Date Indications Data Source(s ) Emergency Attender: Thor Pearce MDConsultant: ERIKA UNKNOWN 04/25/2021 05:17:00 PM EDT - 04/25/2021 06:30:00 PM EDT [facility] Patient discharged. Medications No Information Insurance Providers Payer name Policy type / Coverage type Policy ID Covered constitution party ID Covered constitution party's relationship to reyes Policy Reyes Plan Information [facility] ACTIVE DUTY [id number] SP [id number] [facility] HUMAN - O/P [id number] 18 [id number] [facility] HUMANA - O/P [id number] 18 [id number] Problems, Conditions, and Diagnoses Code Display Name Description Problem Type Effective Dates Data Source(s) [id number] Migraine without aura, intractable, with status migrainosus Migraine without aura, intractable, with status migrainosus Diagnosis 05:17:00 PM EDT [facility] R519 Headache, unspecified Headache, unspecified Diagnosis 04/25/2021 05:17:00 PM EDT [facility] Surgeries/Procedures Procedure Description Date Indications Data Source(s) Polysomnography Sleep Staging 4+ Parameters 03/20/2021 12:00:00 AM EDT [facility] ([facility] Polysomnography Sleep Staging 4+ Parameters W/Cpap 01/13/2021 12:00:00 AM EDT [facility] ([facility]) Results ID Date Data Source [id number] 05/18/2021 07:35:00 AM EST [facility] Name Value Range Interpretation Code Description Data Kacie rce(s) Supporting Document(s) SARS coronavirus 2 RNA [Presence] in Res piratory specimen by DARRELL with probe detection NEGATIVE [facility] This lab was ordered by [facility] a nd reported by [facility]. ID Date Data Source [id number] 04/25/2021 05:17:00 PM EDT [facility] 1 OrderSheet [facility] Emergency Department [address] [place] [address] Phone #: ext- [phone] 04/25/2021 17:13 Patient: SUKH SERNA Sex: M : 1990 Age: 30yWEIGHT:92.5 kg (S)ALLERGIES: Aspirin, Primaquine PhosphateCHIEF COMPLAINT: headacheDIAGNOSIS: MigraineLAB ORDERSOrder Description Priority Entered Acknowledged InitialedDIAGNOSTIC STUDY ORDERSOrder Description Priority Entered Acknowledged InitialedMEDICATION/IV/DRIP/FLUID ORDERSOrder Description Priority Entered Acknowledged InitialedToradol IVP 30 mg 17:39 04/25/2021 17:50 Sorbero,(NOW x1) Thor Pearce R.N.Reglan 10 mg IVP 17:39 04/25/2021 17:49 So rbero,X1 dose: 10 mg Thor Pearce ; Bigg Perez(NOW x1)GENERAL ORDERSOrder Description Priority Entered Acknowledged Initialed[Electronically signed by Thor Pearce (19:22 04/25/2021)][Electronically signed by Bigg Light R.N. (20:02 04/25/2021)][Electronically locked by Bigg Light R.N. (20:02 04/25/2021)] Name Value Range Interpretation Code Description Data Kacie rce(s) Supporting Document(s) ID Date Data Source [id number] 04/25/2021 05:17:00 PM EDT [facility] 1 Medication Reconciliation Report [facility] Emergency Department [address] [place] [address] Phone #: ext- [phone] 04/25/2021 17:13 Patient: SUKH SERNA Sex: M : 1990 Age: 30yWeight: 92.5 kgHeight/Length: 73 in.BMI: 26.9ALLERGIES: Aspirin, Primaquine PhosphateThe patient's Home Medications are listed below:NONE.The source(s) of the original Home Medication information:patientThe following Medications were given to the patient in the Emergency Department:Regl an [IVP] IVP 10 mg, administered: 17:49 04/25/2021Toradol [IVP] IVP 30 mg, administered: 17:50 04/25/2021The following Medications were prescribed to the patient:Fioricet 50 mg-300 mg-40 mg capsule Take 1 capsule three times a day -- Dispense 12 capsule.Refills: 0. Substitution permitted.Pharmacy - [facility] [phone] ; [place] [address]. . -- Thor Pearce Name Value Range Interpretation Code Description Data Kacie rce(s) Supporting Document(s) ID Date Data Source [id number] 04/25/2021 05:17:00 PM EDT [facility] 1 Medication Administration Record [facility] Emergency Department [address] [place] [address] Phone #: ext- [phone] 04/25/2021 17:13 [id number] Sex: M : 1990 Age: 30yWeight: 92.5 kgHeight/Length: 73 inBMI: 26.9ALLERGIES: Primaquine Phosphate, Aspirin Date/Time Medication Administered Medication OrderedGiven TORADOL [IVP] (KETOROLAC Toradol IVP 30 mg (NOW x1)17:50 04/25/2021 TROMETHAMINE)Bigg Light R.N. Dose: 30 mg IVP Site: #1 left ACGiven REGLAN [IVP] (METOCLOPRAMIDE Reglan 10 mg IVP X1 dose: 10 mg17:49 04/25/2021 HCL) (NOW x1)Bigg Light R.N. Dose: 10 mg IVP Site: #1 left Name Value Range Interpretation Code Description Data Kacie rce(s) Supporting Document(s) ID Date Data Source [id number] 04/25/2021 05:17:00 PM EDT [facility] 1 General Instructions [facility] Emergency Department [address] [place] [address] Phone #: ext- [phone] 04/25/2021 17:13 Patient: [...] Dispense 12 capsule.Refills: 0. Substitution permitted.Pharmacy - [facility] [phone] ; [place] [address]. .Understanding of the discharge instructions verbalized by patient.Follow-up with: [facility] Respective Team Alessandra FREEMAN, , , [address] [address], , [place], [address] Follow up in three days if not better. Call for an appointment. Reason for referral: evaluation. ADDITIONAL INFORMATIONWhat Are Migraine and Tension Headaches? 2 General Instructions [facility] Emergency Department [address] [place] [address] Phone #: ext- [phone] 04/25/2021 17:13 Patient: [...] to speak, or sensation 3 General Instructions [facility] Emergency Department [address] [place] [address] Phone #: ext- [phone] 04/25/2021 17:13 Patient: [...] ever had" New headaches in a woman [id number] [employer]. [address] [place] [address]. All rights reserved. This information is not intended as asubstitute for professional medical care. Always follow your healthcare professional's instructions. You have been given the following additional information: What Are Migraine and Tension Headaches? 4 General Instructions [facility] Emergency Department [address] [place] [address] Phone #: ext- [phone] 04/25/2021 17:13 Patient: SUKH SERNA Sex: M : 1990 Age: 30y(Electronically signed by Thor Pearce 04/25/2021 19:22) Name Value Range Interpretation Code Description Data Kacie rce(s) Supporting Document(s) ID Date Data Source [id number] 04/25/2021 05:17:00 PM EDT [facility] 1 Clinical Report - Nurses [facility] Emergency Department [address] [place] [address] Phone #: ext- [phone] 04/25/2021 17:13 Patient: SUKH SERNA Sex: M : 1990 Age: 30yTRIAGEArrived by private vehicle. Historian: patient. ( presents with headache).Triage time: 17:26 04/25/2021. Acuity: LEVEL 4.Chief Complaint: HEADACHE.Alert. 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 SEPSIS SCREEN NEGATIVE. No suspected or confirmedsigns of infection present.WILL COMA SCORE: 15- eyes open- spontaneous (4); best verbal response- oriented (5); bestmotor response- obeys commands (6). --17:29 04/25/21 Bigg Light R.N.17:04/25/21. BP: 153/95. MAP: 114. HR: 54. RR: 16. O2 saturation: 100% on room air. Temp: 98.1 F.Pain level now: 510. --17:29 04/25/21 Bigg Light R.N.Weight: 92.5 kg stated. Height/Length: 73 inches Per Patient. BMI: 26.9. --17:04/25/21 Bigg Light R.N.MedicationsNone. --17:36 04/25/21 Bigg Light R.N.AllergiesAspirin. --18:32 04/25/21 Bigg Light R.N.Primaquine Phosphate. --18:32 04/25/21 Bigg Light R.N.The following entry was struck by Bigg Light R.N., 18:31 (04/25/21) Reason - wrong value. None. --18:29 04/25/21 Bigg Light R.N. .PROBLEMS:Headache. --17:35 04/25/21 Bigg Light R.N.Medication/allergy information source: the patient. --17:29 04/25/21 Bigg Light R.N.ADDITIONAL SURGERIES: 2 Clinical Report - Nurses [facility] Emergency Department [address] [place] [address] Phone #: ext- [phone] 04/25/2021 17:13 Patient: [...] Light R.N. 3 Clinical Report - Nurses [facility] Emergency Department [address] [place] [address] Phone #: ext- [phone] 04/25/2021 17:13 Patient: SUKH SERNA Sex: M [...] Patient verbalized understanding. Written instructions provided in Japanese. The patient was discharged by the physician. He was discharged home. He left ambulatory and via private vehicle. Patient driving. --18:28 04/25/21 Bigg Light R.N. 18:27 04/25/21. BP: 121/90. MAP: 100. HR: 53. RR: 16. O2 saturation: 100%. Temp: 98.2 F. Pain level now: 12/08. --18:28 04/25/21 Bigg Light R.N. 18:29 04/25/2021 Site #1 removed upon discharge. Catheter intact. Bandage applied. --18:29 04/25/21 Bigg Light R.N.Locked/Released at 04/25/2021 20:02 by Bigg Light R.N. Name Value Range Interpretation Code Description Data Kacie rce(s) Supporting Document(s) ID Date Data Source [id number] 04/25/2021 05:17:00 PM EDT [facility] 1 Clinical Report - Physicians/Mid Levels [facility] Emergency Department [address] [place] [address] Phone #: ext- [phone] 04/25/2021 17:13 Patient: [...] sided for 4 weeks. Seen twice at [facility] and had workup done. Headache every 2-3 days. No fever, arm or leg weakness. The medical staff at [place] prescribed him Ibuprofen without any relief. No [...] Allergies: 2 Clinical Report - Physicians/Mid Levels [facility] Emergency Department [address] [place] [address] Phone #: [phone]- [phone] 04/25/2021 17:13 Patient: SUKH SERNA Sex: M [...] controlled. 3 Clinical Report - Physicians/Mid Levels [facility] Emergency Department [address] [place] [address] Phone #: ext- [phone] 04/25/2021 17:13 Patient: SUKH SERNA Sex: M [...] capsule. Refills: 0. Substitution permitted. Pharmacy - [facility] [id number] ; [place] [address]. . Understanding of the discharge instructions verbalized by patient. Follow-up with: [facility] Respective Team [facility], , , [address] [address], , [place], [address] Follow up in three days if not better. Call for an appointment. Reason for referral: evaluation.(Electronically signed by Thor Pearce 04/25/2021 19:22) Name Value Range Interpretation Code Description Data Kacie rce(s) Supporting Document(s) ID Date Data Source [id number] 04/04/2021 10:35:00 AM EDT [facility] Name Value Range Interpretation Code Description Data Kacie rce(s) Supporting Document(s) [facility] was [facility] by JANELL johnson nd reported by [facility]. Procedure Social History No Information
[2021-06-02 11:14] LABS: RSV AMPLIFICATION NEGATIVE (NEGATIVE)
--- OUTSIDE RECORDS SUMMARY | 2021-06-02 14:20 | CCD ---
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 If you continue you may have access to information: Regarding HIV / AIDS; Provided by facilities licensed or operated by the [facility] Office of Mental Health; or Provided by the [facility] Office for People With Developmental Disabilities. If such information is present, then the following [facility] mandated warning applies: This information has been [...] law may result in a fine or chcf sentence or both. A general authorization for the release of medical or other information is NOT sufficient authorization for further disc losure. Encounters Encounter Providers Location Date Indications Data Source(s ) Emergency Attender: Thor Pearce MDConsultant: ERIKA UNKNOWN 04/25/2021 05:17:00 PM EDT - 04/25/2021 06:30:00 PM EDT [facility] Patient discharged. Medications No Information Insurance Providers Payer name Policy type / Coverage type Policy ID Covered libertarian ID Covered libertarian's relationship to reyes Policy Reyes Plan Information [facility] ACTIVE DUTY [id number] SP [id number] [facility] HUMAN - O/P [id number] 18 [id number] [facility] [employer]MA[employer] - O/P [id number] 18 [id number] Problems, Conditions, and Diagnoses Code Display Name Description Problem Type Effective Dates Data Source(s) X46301 Migraine without aura, intractable, with status migrainosus Migraine without aura, intractable, with status migrainosus Diagnosis 05:17:00 PM EDT [facility] R519 Headache, unspecified Headache, unspecified Diagnosis 04/25/2021 05:17:00 PM EDT [facility] Surgeries/Procedures Procedure Description Date Indications Data Source(s) Polysomnography Sleep Staging 4+ Parameters 03/20/2021 12:00:00 AM EDT [facility], ) Polysomnography Sleep Staging 4+ Parameters W/Cpap 01/13/2021 12:00:00 AM EDT [facility]) Results ID Date Data Source [id number] 05/18/2021 07:35:00 AM EST [facility] Name Value Range Interpretation Code Description Data Kacie rce(s) Supporting Document(s) SARS coronavirus 2 RNA [Presence] in Res piratory specimen by DARRELL with probe detection NEGATIVE [facility] This lab was ordered by [facility] a nd reported by [facility]. ID Date Data Source [id number] 04/25/2021 05:17:00 PM EDT [facility] 1 OrderSheet [facility] Emergency Department [address] [place] [address] Phone #: ext- [phone] 04/25/2021 17:13 Patient: [...] rce(s) Supporting Document(s) ID Date Data Source [id number] 04/25/2021 05:17:00 PM EDT [facility] 1 Medication Reconciliation Report [facility] Emergency Department [address] [place] [address] Phone #: ext- [phone] 04/25/2021 17:13 Patient: SUKH SERNA Sex: M [...] Dispense 12 capsule.Refills: 0. Substitution permitted.Pharmacy - [facility] [phone] ; [place] [address]. . -- Thor Pearce Name Value Range Interpretation Code Description Data Kacie rce(s) Supporting Document(s) ID Date Data Source [id number] 04/25/2021 05:17:00 PM EDT [facility] 1 Medication Administration Record [facility] Emergency Department [address] [place] [address] Phone #: ext- [phone] 04/25/2021 17:13 [id number] Sex: M : 1990 Age: 30yWeight: 92.5 [...] rce(s) Supporting Document(s) ID Date Data Source [id number] 04/25/2021 05:17:00 PM EDT [facility] 1 General Instructions [facility] Emergency Department [address] [place] [address] Phone #: ext- [phone] 04/25/2021 17:13 Patient: [...] Dispense 12 capsule.Refills: 0. Substitution permitted.Pharmacy - [facility] [phone] ; [place] [address]. .Understanding of the discharge instructions verbalized by patient.Follow-up with: [facility] Respective Team Alessandra FREEMAN, , , [address], , [place], [address] Follow up in three days if not better. Call for an appointment. Reason for referral: evaluation. ADDITIONAL INFORMATIONWhat Are Migraine and Tension Headaches? 2 General Instructions [facility] Emergency Department [address] [place] [address] Phone #: ext- [phone] 04/25/2021 17:13 Patient: [...] to speak, or sensation 3 General Instructions [facility] Department [address] [place] [address] Phone #: ext- [phone] 04/25/2021 17:13 Patient: [...] ever had" New headaches in a woman [id number] [employer]. [address] [place] [address]. All rights reserved. This information is not intended as asubstitute for professional medical care. Always follow your healthcare professional's instructions. You have been given the following additional information: What Are Migraine and Tension Headaches? 4 General Instructions [facility] Emergency Department [address] [place] [address] Phone #: ext- [phone] 04/25/2021 17:13 Patient: SUKH SERNA Sex: M : 1990 Age: 30y(Electronically signed by Thor Pearce 04/25/2021 19:22) Name Value Range Interpretation Code Description Data Kacie rce(s) Supporting Document(s) ID Date Data Source [id number] 04/25/2021 05:17:00 PM EDT [facility] 1 Clinical Report - Nurses [facility] [address] [place] [address] Phone #: ext- [phone] 04/25/2021 17:13 Patient: SUKH SERNA Sex: M : 1990 Age: 30yTRIAGEArrived by private vehicle. Historian: patient. ( presents with headache).Triage time: 17:26 04/25/2021. Acuity: LEVEL 4.Chief Complaint: HEADACHE.Alert. 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 3 Clinical Report - Nurses [facility] [address] [place] [address] Phone #: ext- [phone] 04/25/2021 17:13 Patient: SUKH SERNA Sex: M [...] Patient verbalized understanding. Written instructions provided in Azeri. The patient was discharged by the physician. [...] rce(s) Supporting Document(s) ID Date Data Source [id number] 04/25/2021 05:17:00 PM EDT [facility] 1 Clinical Report - Physicians/Mid Levels [facility] Emergency Department [address] [place] [address] Phone #: ext- [phone] 04/25/2021 17:13 Patient: [...] 4 weeks. Seen twice at [facility] and had workup done. Headache every 2-3 days. No fever, arm or leg weakness. The medical staff at [place] prescribed him Ibuprofen without any relief. No [...] Allergies: 2 Clinical Report - Physicians/Mid Levels [facility] Department [address] [place] [address] Phone #: [phone] dwt- [phone] 04/25/2021 17:13 Patient: SUKH SERNA Sex: M [...] controlled. 3 Clinical Report - Physicians/Mid Levels [facility] Department [address] [place] [address] Phone #: ext- [phone] 04/25/2021 17:13 Patient: SUKH SERNA Sex: M [...] capsule. Refills: 0. Substitution permitted. Pharmacy - [facility] [phone] ; [place] [address]. . Understanding of the discharge instructions verbalized by patient. Follow-up with: [facility] Respective Team [facility], , , [address], , [place], [address] Follow up in three days if not better. Call for an appointment. Reason for referral: evaluation.(Electronically signed by Thor Pearce 04/25/2021 19:22) Name Value Range Interpretation Code Description Data Kacie rce(s) Supporting Document(s) ID Date Data Source [id number] 04/04/2021 10:35:00 AM EDT [facility] Name Value Range Interpretation Code Description Data Kacie rce(s) Supporting Document(s) [facility] was ordered by JANELL johnson nd reported by [facility]. Procedure Social History No Information
--- NOTE | 2021-06-03 07:27 | ECGEPIP ---
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
== END 2021-06-02 13:58 | disposition left against medical advice (07) ==
LOC: M ED 09:47
DX: Z53.21 Procedure and treatment not carried out due to patient leaving prior to being seen by health care provider (principal)

== ENCOUNTER 2021-06-07 01:18 | Inpatient (IN) | payer OTHER ==
[~2021-06-07] VITALS: Ht 185.4 cm; Wt 94.6 kg
[2021-06-07] MEDS ORDERED: BUPR100T3 PO (01:27)
[2021-06-07 02:40] LABS: HEMATOCRIT 41.4 % (42.0-52.0); HEMOGLOBIN 14.4 g/dl (13.5-17.5); MEAN CORPUSCULAR HEMOGLOBIN 29.8 pg (27.0-33.0); MEAN CORPUSCULAR HGB CONC 34.8 g/dl (32.0-36.5); MEAN CORPUSCULAR VOLUME 85.7 fl (80.0-96.0); PLATELET COUNT, AUTOMATED 274 10^3/uL (150-450); RED BLOOD COUNT 4.83 10^6/uL (4.30-6.10); WHITE BLOOD COUNT 8.1 10^3/uL (4.0-10.0)
[2021-06-07 03:09] LABS: ALBUMIN 3.7 GM/DL (3.2-5.2); ALT/SGPT 52 U/L (12-78); BILIRUBIN,DIRECT 0.3 MG/DL (0.0-0.2); BILIRUBIN,TOTAL 1.1 MG/DL (0.2-1.0); BLOOD UREA NITROGEN 9 MG/DL (7-18); CALCIUM LEVEL 9.3 MG/DL (8.5-10.1); CARBON DIOXIDE LEVEL 22 MEQ/L (21-32); CHLORIDE LEVEL 108 MEQ/L (98-107); CREATININE FOR GFR 1.09 MG/DL (0.70-1.30); GLOMERULAR FILTRATION RATE > 60.0 (>60); GLUCOSE, FASTING 95 MG/DL (70-100); POTASSIUM SERUM 3.8 MEQ/L (3.5-5.1); SALICYLATE LEVEL < 1.7 MG/DL (5.0-30.0); SODIUM LEVEL 140 MEQ/L (136-145); TOTAL PROTEIN 7.7 GM/DL (6.4-8.2)
[2021-06-07 03:10] LABS: ACETAMINOPHEN LEVEL < 2.0 UG/ML (10.0-30.0); ETHYL ALCOHOL (ETHANOL) < 0.003 % (0.000-0.010)
[2021-06-07 04:19] LABS: AMPHETAMINES LEVEL URINE NEGATIVE (NEGATIVE); BARBITURATES URINE NEGATIVE (NEGATIVE); BENZODIAZEPINES URINE NEGATIVE (NEGATIVE); CANNABINOIDS URINE NEGATIVE (NEGATIVE); COCAINE METABOLITE URINE NEGATIVE (NEGATIVE); METHADONE URINE NEGATIVE (NEGATIVE); OPIATES URINE NEGATIVE (NEGATIVE); PHENCYCLIDINE URINE NEGATIVE (NEGATIVE)
[2021-06-07 05:00] LABS: RSV AMPLIFICATION NEGATIVE (NEGATIVE)
[2021-06-07] MEDS: buPROPion (WELLBUTRIN SR) 100 MG SR TAB PO SCH ×2 (14:06→21:27)
[2021-06-07] MEDS ORDERED: NICOTINE 21MG/24HR 1 EA TRANSDERMAL TD PRN (14:50)
[2021-06-07] MEDS ORDERED: ACETAMINOPHEN TAB 650MG DOSE (2X325MG) PO PRN (14:50)
[2021-06-07] MEDS ORDERED: MOM 30ML SUSPENSION UDC PO PRN (14:50)
[2021-06-07] MEDS ORDERED: MAALOX 30 ML SUSP *UDC PO PRN (14:50)
[2021-06-07 19:59] VITALS: BP 142/84
[2021-06-07] MEDS: traZODone 50 MG TAB PO PRN (21:27)
[2021-06-07] MEDS: AMITRIPTYLINE 25MG TABLET PO SCH (21:27)
[2021-06-08 06:17] VITALS: BP 132/73
[2021-06-08] MEDS: buPROPion (WELLBUTRIN SR) 100 MG SR TAB PO SCH ×2 (08:36→21:01)
[2021-06-08 17:56] VITALS: BP 123/79
[2021-06-08] MEDS: AMITRIPTYLINE 25MG TABLET PO SCH (21:01)
[2021-06-09 07:09] VITALS: BP 138/80
[2021-06-09] MEDS: buPROPion (WELLBUTRIN SR) 100 MG SR TAB PO SCH ×2 (08:08→21:24)
[2021-06-09 16:54] VITALS: BP 116/61
[2021-06-09] MEDS: traZODone 50 MG TAB PO PRN (21:24)
[2021-06-09] MEDS: AMITRIPTYLINE 25MG TABLET PO SCH (21:24)
[2021-06-10 06:23] VITALS: BP 118/70
[2021-06-10] MEDS: buPROPion (WELLBUTRIN SR) 100 MG SR TAB PO SCH ×2 (09:31→21:51)
[2021-06-10 19:13] VITALS: BP 143/63
[2021-06-10] MEDS: traZODone 50 MG TAB PO PRN (21:51)
[2021-06-10] MEDS: AMITRIPTYLINE 25MG TABLET PO SCH (21:51)
[2021-06-11 06:23] VITALS: BP 133/60
[2021-06-11] MEDS: buPROPion (WELLBUTRIN SR) 100 MG SR TAB PO SCH ×2 (08:59→21:15)
[2021-06-11] MEDS: AMITRIPTYLINE 25MG TABLET PO SCH (21:15)
[2021-06-11] MEDS: traZODone 50 MG TAB PO PRN (21:15)
[2021-06-12 06:58] VITALS: BP 149/67
[2021-06-12] MEDS ORDERED: BUPR100T3 PO (08:59)
[2021-06-12] MEDS ORDERED: AMIT25TA17 PO (08:59)
[2021-06-12] MEDS: buPROPion (WELLBUTRIN SR) 100 MG SR TAB PO SCH (09:35)
== END 2021-06-12 14:09 | disposition home or self-care (01) | DRG 885 ==
LOC: M ED 01:18 → M ED INP 14:46 → M PSY 19:45
PROVIDERS: ADMIT Psychiatry & Neurology Psychiatry; ATTEND Psychiatry & Neurology Psychiatry
DX: F32.1 Major depressive disorder, single episode, moderate (principal); R45.851 Suicidal ideations; Z63.5 Disruption of family by separation and divorce; F41.1 Generalized anxiety disorder; Z79.899 Other long term (current) drug therapy; Z88.8 Allergy status to other drugs, medicaments and biological substances; G43.909 Migraine, unspecified, not intractable, without status migrainosus; Z63.8 Other specified problems related to primary support group

== ENCOUNTER 2021-06-27 04:32 | Emergency (ER) | payer OTHER ==
[~2021-06-27] VITALS: Ht 185.4 cm; Wt 98.2 kg
[~2021-06-27 04:32] MED LIST changes: +BUPR100T3 PO
[2021-06-27] MEDS ORDERED: diphenhydrAMINE 50MG/ML VIAL (J1200) IV ONE (06:25)
[2021-06-27] MEDS ORDERED: NS 1,000 ML IV ONE ×2 (06:25→09:05)
[2021-06-27] MEDS ORDERED: KETOROLAC 30 MG/ML 1ML VIAL IV ONE (06:25)
[2021-06-27] MEDS ORDERED: dexameTHASONE 4 MG/ML 1ML VIAL (J1100 PER 1MG) IV ONE (06:30)
[2021-06-27] MEDS ORDERED: PERCOCET 5MG/325MG TAB PO ONE (09:05)
[2021-06-27 10:53] VITALS: BP 116/55
== END 2021-06-27 11:05 | disposition home or self-care (01) ==
LOC: M ED 04:32
DX: E86.0 Dehydration (principal); G43.909 Migraine, unspecified, not intractable, without status migrainosus; F33.9 Major depressive disorder, recurrent, unspecified; F41.9 Anxiety disorder, unspecified; Z79.899 Other long term (current) drug therapy; Z88.8 Allergy status to other drugs, medicaments and biological substances
CPT/HCPCS: 96361; 96374; 96375; 99284; J1100; J1200; J1885

== ENCOUNTER 2021-06-30 03:54 | Emergency (ER) | payer OTHER ==
[~2021-06-30] VITALS: Ht 185.4 cm; Wt 96.0 kg
[2021-06-30] MEDS ORDERED: diphenhydrAMINE 50MG/ML VIAL (J1200) IV STA (06:57)
[2021-06-30] MEDS ORDERED: NS 1,000 ML IV ONE (07:00)
[2021-06-30] MEDS ORDERED: KETOROLAC 30 MG/ML 1ML VIAL IV ONE (07:00)
[2021-06-30] MEDS ORDERED: METOCLOPRAMIDE INJ 10MG/2ML VIAL (J2765 PER 1) IV ONE (07:00)
[2021-06-30 07:30] VITALS: O2SAT 100
[2021-06-30 07:48] LABS: BASO % 0.4 % (0.0-1.0); EOS % 0.6 % (0.0-3.0); HEMATOCRIT 40.9 % (42.0-52.0); HEMOGLOBIN 14.4 g/dl (13.5-17.5); LYMPH # 2.6 10^3/uL (1.5-5.0); LYMPH % 52.1 % (24.0-44.0); MEAN CORPUSCULAR HEMOGLOBIN 30.1 pg (27.0-33.0); MEAN CORPUSCULAR HGB CONC 35.2 g/dl (32.0-36.5); MEAN CORPUSCULAR VOLUME 85.4 fl (80.0-96.0); MONO # 0.9 10^3/uL (0.0-0.8); NEUTROPHILS # 1.4 10^3/uL (1.5-8.5); NEUTROPHILS % 27.9 % (36.0-66.0); PLATELET COUNT, AUTOMATED 215 10^3/uL (150-450); RED BLOOD COUNT 4.79 10^6/uL (4.30-6.10); WHITE BLOOD COUNT 4.9 10^3/uL (4.0-10.0)
[2021-06-30 08:14] LABS: BLOOD UREA NITROGEN 11 MG/DL (7-18); CALCIUM LEVEL 8.6 MG/DL (8.5-10.1); CARBON DIOXIDE LEVEL 27 MEQ/L (21-32); CHLORIDE LEVEL 107 MEQ/L (98-107); CREATININE FOR GFR 0.92 MG/DL (0.70-1.30); GLOMERULAR FILTRATION RATE > 60.0 (>60); GLUCOSE, FASTING 89 MG/DL (70-100); MAGNESIUM LEVEL 2.4 MG/DL (1.8-2.4); SODIUM LEVEL 138 MEQ/L (136-145)
[2021-06-30] MEDS ORDERED: dexameTHASONE 20MG/5ML VIAL (J1100 PER 1MG) IV ONE (08:40)
[2021-06-30] MEDS ORDERED: REGL10TA6 PO (09:18)
[2021-06-30 09:39] VITALS: BP 109/58
== END 2021-06-30 09:40 | disposition home or self-care (01) ==
LOC: M ED 03:54
DX: U07.1 COVID-19 (principal); R51.9 Headache, unspecified; Z88.8 Allergy status to other drugs, medicaments and biological substances; Z88.6 Allergy status to analgesic agent; Z79.899 Other long term (current) drug therapy
CPT/HCPCS: 80048; 83735; 85025; 96374; 96375; 99284; J1100; J1200; J1885; J2765

== ENCOUNTER 2021-07-22 19:22 | Inpatient (IN) | payer OTHER ==
[~2021-07-22] VITALS: Ht 185.4 cm; Wt 93.9 kg
[~2021-07-22 19:22] MED LIST changes: +REGL10TA6 PO
[2021-07-22 20:08] LABS: HEMATOCRIT 43.5 % (42.0-52.0); HEMOGLOBIN 15.1 g/dl (13.5-17.5); MEAN CORPUSCULAR HEMOGLOBIN 30.2 pg (27.0-33.0); MEAN CORPUSCULAR HGB CONC 34.7 g/dl (32.0-36.5); PLATELET COUNT, AUTOMATED 283 10^3/uL (150-450)
[2021-07-22 20:18] LABS: AMPHETAMINES LEVEL URINE NEGATIVE (NEGATIVE); BARBITURATES URINE NEGATIVE (NEGATIVE); BENZODIAZEPINES URINE NEGATIVE (NEGATIVE); CANNABINOIDS URINE NEGATIVE (NEGATIVE); COCAINE METABOLITE URINE NEGATIVE (NEGATIVE); METHADONE URINE NEGATIVE (NEGATIVE); OPIATES URINE NEGATIVE (NEGATIVE); PHENCYCLIDINE URINE NEGATIVE (NEGATIVE)
[2021-07-22 20:33] LABS: ACETAMINOPHEN LEVEL < 2.0 UG/ML (10.0-30.0); ALBUMIN 4.1 GM/DL (3.2-5.2); ALT/SGPT 75 U/L (12-78); BILIRUBIN,DIRECT 0.2 MG/DL (0.0-0.2); BILIRUBIN,TOTAL 0.7 MG/DL (0.2-1.0); BLOOD UREA NITROGEN 10 MG/DL (7-18); CALCIUM LEVEL 9.2 MG/DL (8.5-10.1); CARBON DIOXIDE LEVEL 30 MEQ/L (21-32); CHLORIDE LEVEL 106 MEQ/L (98-107); CREATININE FOR GFR 0.97 MG/DL (0.70-1.30); ETHYL ALCOHOL (ETHANOL) 0.003 % (0.000-0.010); GLOMERULAR FILTRATION RATE > 60.0 (>60); GLUCOSE, FASTING 90 MG/DL (70-100); POTASSIUM SERUM 3.7 MEQ/L (3.5-5.1); SALICYLATE LEVEL < 1.7 MG/DL (5.0-30.0); SODIUM LEVEL 141 MEQ/L (136-145); TOTAL PROTEIN 8.2 GM/DL (6.4-8.2)
[2021-07-22] MEDS ORDERED: ESZO1TAB8 PO (20:39)
[2021-07-22] MEDS ORDERED: AMIT25TA17 PO (20:47)
[2021-07-22] MEDS ORDERED: BUPR15TA PO (20:47)
[2021-07-22] MEDS ORDERED: HOME MED LIST COMPLETE! XX SCH (20:50)
[2021-07-24] MEDS ORDERED: ACETAMINOPHEN TAB 650MG DOSE (2X325MG) PO ONE (03:30)
[2021-07-24] MEDS ORDERED: IBUPROFEN 600MG TAB PO ONE (08:50)
[2021-07-24] MEDS ORDERED: MAALOX 30 ML SUSP *UDC PO PRN (14:20)
[2021-07-24] MEDS ORDERED: MOM 30ML SUSPENSION UDC PO PRN (14:20)
[2021-07-24] MEDS ORDERED: OLANZapine ORAL DISINTEGRATING TAB 5MG PO PRN (14:20)
[2021-07-24] MEDS: ACETAMINOPHEN TAB 650MG DOSE (2X325MG) PO PRN (18:30)
[2021-07-25 06:25] VITALS: BP 114/70
[2021-07-25] MEDS: buPROPion **XL** TABLET 150MG (WELLBUTRIN XL) PO SCH (14:21)
[2021-07-25] MEDS: SERTRALINE HCL 50 MG TAB PO SCH (14:21)
[2021-07-25] MEDS: guaiFENesin ER 600 MG TAB PO SCH ×2 (14:58→21:42)
[2021-07-25 19:02] VITALS: BP 138/78
[2021-07-25] MEDS: traZODone 50 MG TAB PO PRN (21:42)
[2021-07-26 06:20] VITALS: BP 122/68
[2021-07-26] MEDS: buPROPion **XL** TABLET 150MG (WELLBUTRIN XL) PO SCH (10:05)
[2021-07-26] MEDS: guaiFENesin ER 600 MG TAB PO SCH ×2 (10:05→20:57)
[2021-07-26] MEDS: SERTRALINE HCL 50 MG TAB PO SCH (10:05)
[2021-07-26 18:28] VITALS: BP 132/64
[2021-07-26] MEDS ORDERED: MIRTAZAPINE 7.5MG PER 1/2 TABLET PO SCH (21:00)
[2021-07-27 06:31] VITALS: BP 119/68
[2021-07-27] MEDS: ACETAMINOPHEN TAB 650MG DOSE (2X325MG) PO PRN (07:31)
[2021-07-27] MEDS: SERTRALINE HCL 50 MG TAB PO SCH (08:41)
[2021-07-27] MEDS: guaiFENesin ER 600 MG TAB PO SCH ×2 (08:41→20:50)
[2021-07-27] MEDS: buPROPion **XL** TABLET 150MG (WELLBUTRIN XL) PO SCH (08:41)
[2021-07-27 17:25] VITALS: BP 125/73
[2021-07-27] MEDS: MIRTAZAPINE 15 MG TAB PO SCH (20:50)
[2021-07-28 06:18] VITALS: BP 142/64
[2021-07-28] MEDS: buPROPion **XL** TABLET 150MG (WELLBUTRIN XL) PO SCH (09:36)
[2021-07-28] MEDS: SERTRALINE HCL 50 MG TAB PO SCH (09:36)
[2021-07-28] MEDS: guaiFENesin ER 600 MG TAB PO SCH ×2 (09:36→21:18)
[2021-07-28 18:25] VITALS: BP 136/93
[2021-07-28] MEDS: traZODone 50 MG TAB PO PRN (21:18)
[2021-07-28] MEDS: MIRTAZAPINE 15 MG TAB PO SCH (21:18)
[2021-07-28] MEDS: TOPIRAMATE (TopAMAX) 25 MG TAB PO SCH (21:18)
[2021-07-29 06:45] VITALS: BP 130/74
[2021-07-29] MEDS: buPROPion **XL** TABLET 150MG (WELLBUTRIN XL) PO SCH (09:16)
[2021-07-29] MEDS: guaiFENesin ER 600 MG TAB PO SCH ×2 (09:16→20:19)
[2021-07-29] MEDS: SERTRALINE HCL 50 MG TAB PO SCH (09:16)
[2021-07-29] MEDS: MIRTAZAPINE 15 MG TAB PO SCH (20:19)
[2021-07-29] MEDS: TOPIRAMATE (TopAMAX) 25 MG TAB PO SCH (20:19)
[2021-07-29 20:30] VITALS: BP 118/75
[2021-07-30 06:22] VITALS: BP 163/67
[2021-07-30] MEDS: guaiFENesin ER 600 MG TAB PO SCH ×2 (09:50→20:32)
[2021-07-30] MEDS: buPROPion **XL** TABLET 150MG (WELLBUTRIN XL) PO SCH (09:50)
[2021-07-30] MEDS: SERTRALINE HCL 50 MG TAB PO SCH (09:50)
[2021-07-30 17:52] VITALS: BP 132/62
[2021-07-30] MEDS: MIRTAZAPINE 15 MG TAB PO SCH (20:32)
[2021-07-30] MEDS: traZODone 50 MG TAB PO PRN (20:32)
[2021-07-30] MEDS: TOPIRAMATE (TopAMAX) 25 MG TAB PO SCH (20:32)
[2021-07-31 06:10] VITALS: BP 120/83
[2021-07-31] MEDS: buPROPion **XL** TABLET 150MG (WELLBUTRIN XL) PO SCH (09:52)
[2021-07-31] MEDS: SERTRALINE HCL 50 MG TAB PO SCH (09:52)
[2021-07-31] MEDS: guaiFENesin ER 600 MG TAB PO SCH ×2 (09:52→20:42)
[2021-07-31] MEDS: ACETAMINOPHEN TAB 650MG DOSE (2X325MG) PO PRN (14:34)
[2021-07-31 16:05] VITALS: BP 150/75
[2021-07-31] MEDS: TOPIRAMATE (TopAMAX) 25 MG TAB PO SCH (20:42)
[2021-07-31] MEDS: traZODone 50 MG TAB PO PRN (20:42)
[2021-07-31] MEDS: MIRTAZAPINE 15 MG TAB PO SCH (20:42)
[2021-08-01 06:22] VITALS: BP 128/68
[2021-08-01] MEDS: guaiFENesin ER 600 MG TAB PO SCH ×2 (09:32→20:31)
[2021-08-01] MEDS: buPROPion **XL** TABLET 150MG (WELLBUTRIN XL) PO SCH (09:33)
[2021-08-01] MEDS: SERTRALINE HCL 50 MG TAB PO SCH (09:33)
[2021-08-01 16:08] VITALS: BP 117/69
[2021-08-01] MEDS: MIRTAZAPINE 15 MG TAB PO SCH (20:31)
[2021-08-01] MEDS: TOPIRAMATE (TopAMAX) 25 MG TAB PO SCH (20:31)
[2021-08-02 06:43] VITALS: BP 123/77
[2021-08-02] MEDS: SERTRALINE HCL 25 MG TABLET PO SCH (09:20)
[2021-08-02] MEDS: buPROPion **XL** TABLET 150MG (WELLBUTRIN XL) PO SCH (09:20)
[2021-08-02] MEDS: guaiFENesin ER 600 MG TAB PO SCH ×2 (09:20→21:37)
[2021-08-02] MEDS ORDERED: PILL CUTTER 1 EACH XX PRN (10:20)
[2021-08-02] MEDS: zolPIDEM TARTRATE 5 MG TAB PO SCH (21:37)
[2021-08-02] MEDS: MIRTAZAPINE 15 MG TAB PO SCH (21:37)
[2021-08-02] MEDS: TOPIRAMATE (TopAMAX) 25 MG TAB PO SCH (21:38)
[2021-08-03 07:00] VITALS: BP 123/67
[2021-08-03] MEDS: guaiFENesin ER 600 MG TAB PO SCH ×2 (09:00→21:00)
[2021-08-03] MEDS: SERTRALINE HCL 25 MG TABLET PO SCH (09:52)
[2021-08-03] MEDS: buPROPion **XL** TABLET 150MG (WELLBUTRIN XL) PO SCH (09:52)
[2021-08-03 18:25] VITALS: BP 127/72
[2021-08-03] MEDS: zolPIDEM TARTRATE 5 MG TAB PO SCH (21:00)
[2021-08-03] MEDS: TOPIRAMATE (TopAMAX) 25 MG TAB PO SCH (21:45)
[2021-08-04 06:38] VITALS: BP 126/66
[2021-08-04] MEDS: guaiFENesin ER 600 MG TAB PO SCH ×2 (09:00→20:37)
[2021-08-04] MEDS: buPROPion **XL** TABLET 150MG (WELLBUTRIN XL) PO SCH (09:11)
[2021-08-04] MEDS: SERTRALINE HCL 25 MG TABLET PO SCH (09:11)
[2021-08-04] MEDS: TOPIRAMATE (TopAMAX) 25 MG TAB PO SCH ×2 (11:31→20:37)
[2021-08-04 16:24] VITALS: BP 150/79
[2021-08-05 06:11] VITALS: BP 138/71
[2021-08-05] MEDS: guaiFENesin ER 600 MG TAB PO SCH ×2 (09:00→20:54)
[2021-08-05] MEDS: TOPIRAMATE (TopAMAX) 25 MG TAB PO SCH ×2 (09:43→20:54)
[2021-08-05] MEDS: buPROPion **XL** TABLET 150MG (WELLBUTRIN XL) PO SCH (09:43)
[2021-08-05] MEDS: SERTRALINE HCL 25 MG TABLET PO SCH (09:44)
[2021-08-05 15:58] VITALS: BP 130/65
[2021-08-05] MEDS: RAMELTEON 8 MG TAB (ROZEREM) PO PRN (20:54)
[2021-08-06 06:32] VITALS: BP 147/69
[2021-08-06] MEDS: guaiFENesin ER 600 MG TAB PO SCH ×2 (09:34→20:42)
[2021-08-06] MEDS: buPROPion **XL** TABLET 150MG (WELLBUTRIN XL) PO SCH (09:34)
[2021-08-06] MEDS: TOPIRAMATE (TopAMAX) 25 MG TAB PO SCH ×2 (09:34→20:42)
[2021-08-06] MEDS: SERTRALINE HCL 25 MG TABLET PO SCH (09:34)
[2021-08-06 16:32] VITALS: BP 122/58
[2021-08-06] MEDS: RAMELTEON 8 MG TAB (ROZEREM) PO PRN (20:42)
[2021-08-07 06:55] VITALS: BP 127/60
[2021-08-07] MEDS ORDERED: SERT-141 PO (09:21)
[2021-08-07] MEDS ORDERED: TOPA1TAB PO (09:21)
[2021-08-07] MEDS ORDERED: BUPR150T12 PO (09:21)
[2021-08-07] MEDS ORDERED: SERT25TA85 PO (09:21)
[2021-08-07] MEDS: SERTRALINE HCL 25 MG TABLET PO SCH (09:27)
[2021-08-07] MEDS: TOPIRAMATE (TopAMAX) 25 MG TAB PO SCH (09:27)
[2021-08-07] MEDS: buPROPion **XL** TABLET 150MG (WELLBUTRIN XL) PO SCH (09:27)
[2021-08-07] MEDS: guaiFENesin ER 600 MG TAB PO SCH (09:27)
== END 2021-08-07 14:25 | disposition home or self-care (01) | DRG 885 ==
LOC: M ED 19:22 → M ED INP 07-24 14:16 → M PSY 07-24 17:33
PROVIDERS: ADMIT Student in an Organized Health Care Education/Training Program; ATTEND Student in an Organized Health Care Education/Training Program
DX: F33.1 Major depressive disorder, recurrent, moderate (principal); U07.1 COVID-19; R45.851 Suicidal ideations; F41.1 Generalized anxiety disorder; G43.709 Chronic migraine without aura, not intractable, without status migrainosus; J45.909 Unspecified asthma, uncomplicated; F45.1 Undifferentiated somatoform disorder; Z63.5 Disruption of family by separation and divorce; Z56.4 Discord with boss and workmates; Z79.899 Other long term (current) drug therapy

== ENCOUNTER 2021-08-30 06:58 | Emergency (ER) | payer OTHER ==
[~2021-08-30] VITALS: Ht 185.4 cm; Wt 98.6 kg
[~2021-08-30 06:58] MED LIST changes: +BUPR150T12 PO; +BUPR15TA PO; +ESZO1TAB8 PO; +SERT-141 PO; +SERT25TA85 PO; +TOPA1TAB PO
[2021-08-30] MEDS ORDERED: TOPA1TAB PO (07:11)
[2021-08-30] MEDS ORDERED: NS 1,000 ML IV ONE (08:05)
[2021-08-30] MEDS ORDERED: KETOROLAC 30 MG/ML 1ML VIAL IV ONE (08:05)
[2021-08-30] MEDS ORDERED: dexameTHASONE 4 MG/ML 1ML VIAL (J1100 PER 1MG) IV ONE (08:05)
[2021-08-30] MEDS ORDERED: diphenhydrAMINE 50MG/ML VIAL (J1200) IV STA (08:05)
[2021-08-30] MEDS ORDERED: TOPIRAMATE (TopAMAX) 25 MG TAB PO ONE (09:40)
[2021-08-30 09:51] VITALS: BP 133/51
== END 2021-08-30 12:15 | disposition home or self-care (01) ==
LOC: M ED 06:58
DX: G43.809 Other migraine, not intractable, without status migrainosus (principal); G43.709 Chronic migraine without aura, not intractable, without status migrainosus; E86.0 Dehydration; F32.9 Major depressive disorder, single episode, unspecified; F41.9 Anxiety disorder, unspecified; Z88.8 Allergy status to other drugs, medicaments and biological substances; Z79.899 Other long term (current) drug therapy
CPT/HCPCS: 96361; 96374; 96375; 99284; J1100; J1200; J1885

== ENCOUNTER → 2021-11-02 | Outpatient (REF) | payer OTHER ==
[~2021-11-02] MED LIST changes: +BUPR-70 PO; -BUPR100T3 PO
[2021-11-02 19:01] LABS: BASO % 0.4 % (0.0-1.0); EOS # 0.1 10^3/uL (0.0-0.5); EOS % 0.7 % (0.0-3.0); HEMATOCRIT 41.8 % (42.0-52.0); HEMOGLOBIN 14.5 g/dl (13.5-17.5); LYMPH # 2.7 10^3/uL (1.5-5.0); LYMPH % 39.3 % (24.0-44.0); MEAN CORPUSCULAR HEMOGLOBIN 30.3 pg (27.0-33.0); MEAN CORPUSCULAR HGB CONC 34.7 g/dl (32.0-36.5); MEAN CORPUSCULAR VOLUME 87.4 fl (80.0-96.0); MONO # 0.5 10^3/uL (0.0-0.8); MONO % 7.6 % (2.0-8.0); NEUTROPHILS # 3.6 10^3/uL (1.5-8.5); NEUTROPHILS % 51.9 % (36.0-66.0); PLATELET COUNT, AUTOMATED 297 10^3/uL (150-450); RED BLOOD COUNT 4.78 10^6/uL (4.30-6.10)
== END ==
LOC: M LAB REF 17:18
PROVIDERS: ATTEND Physician Assistant
DX: J45.40 Moderate persistent asthma, uncomplicated (principal)

== ENCOUNTER 2021-11-07 09:22 | Emergency (ER) | payer OTHER ==
[~2021-11-07] VITALS: Ht 185.4 cm; Wt 98.2 kg
[2021-11-07] MEDS ORDERED: METOCLOPRAMIDE INJ 10MG/2ML VIAL (J2765 PER 1) IV ONE (11:10)
[2021-11-07] MEDS ORDERED: KETOROLAC 30 MG/ML 1ML VIAL IV ONE (11:10)
[2021-11-07] MEDS ORDERED: ACETAMINOPHEN TAB 650MG DOSE (2X325MG) PO ONE (11:10)
[2021-11-07] MEDS ORDERED: NS 1,000 ML IV ONE (11:10)
[2021-11-07] MEDS ORDERED: KETO10TAB PO (12:56)
[2021-11-07] MEDS ORDERED: ONDA4TAB6 PO (12:56)
[2021-11-07 13:01] VITALS: BP 116/51
== END 2021-11-07 13:30 | disposition home or self-care (01) ==
LOC: M ED 09:22
DX: G43.909 Migraine, unspecified, not intractable, without status migrainosus (principal); Z79.899 Other long term (current) drug therapy; Z88.8 Allergy status to other drugs, medicaments and biological substances
CPT/HCPCS: 96361; 96374; 96375; 99284; J1885; J2765

== ENCOUNTER 2021-11-21 03:48 | Emergency (ER) | payer OTHER ==
[~2021-11-21] VITALS: Ht 185.4 cm; Wt 97.7 kg
[2021-11-21 03:48] VITALS: BP 135/85
[~2021-11-21 03:48] MED LIST changes: +KETO10TAB PO; +ONDA4TAB6 PO
== END 2021-11-21 08:46 | disposition left against medical advice (07) ==
LOC: M ED 03:48
DX: Z53.21 Procedure and treatment not carried out due to patient leaving prior to being seen by health care provider (principal)